=== PATIENT | male | born 1990 | race Caucasian/White ===

== ENCOUNTER 2025-10-14 16:07 | Outpatient (OUT) | payer OTHER, SELFPAY ==
--- OUTSIDE RECORDS SUMMARY | 2025-10-14 16:16 | XMS_ITS | Clinical Summary ---
Author Organization [facility] Address [address] [place] [address] Care Team Providers Care Real Estate Loan Officer Name Role Phone LailaDavid andrade Judy ELI Primary Care Provider [phone]- [phone] Allergies Active AllergyReactionsCriticalityNoted OipzDxpaywtcMwkwtqmdttdXucuUqb61/13/2019 Other Reaction(s): hives. redness Hydrocodone-AcetaminophenNausea Only10/05/2023Sulfa AntibioticsHives,RashLow 03/27/2017 Medications No known medications Active Problems ProblemNoted DateDiagnosed DateBipolar 1 /20/2023oncentration deficit 10/05/2023 Family History Medical HistoryRelationNameCommentsAlcohol abuseFatherDepressionFatherDepression EtliiwNwwcchsoAnizomWsqmcziFtqjdsUbsokrfbGssrMdmcrqEdllsgttKsjorli5QscsrpJadjh MotherAlive Social History Tobacco UseTypesPacks/DayYears UsedDateSmoking Tobacco: FormerCigarettes1.510 04/16/2012 - 04/16/2022mokeless Tobacco: NeverAlcohol UseStandard Drinks/Week CommentsYes0 (1 standard drink = 0.6 oz pure alcohol)Caffeine intake: coffee, 2 pots coffee dailyAUDIT-CAnswerDate RecordedQ1: How often do you have a drink containing alcohol?2-4 times a month10/04/2023Q2: How many drinks containing alcohol do you have on a typical day when you are drinking?5 or 6112/05/2022Q3: How often do you have six or more drinks on one occasion?Lwtnlf9310/04/2023Sex and Gender InformationValueDate RecordedSex Assigned at BirthNot on fileLegal Sex Male12/29/2022 7:34 PM EDTGender IdentityNot on fileSexual OrientationNot on file Last Filed Vital Signs Vital SignReadingTime TakenCommentsBlood Uknaerup838/8208 12:00 PM EDT Pulse--Temperature--Respiratory Rate--Oxygen Saturation--Inhaled Oxygen Concentration--Xdklvc84 kg (205 lb)10/05/2023 3:58 PM BLOEtbnrv541.7 cm (5' 8 ) 10/05/2023 3:58 PM ESTBody Mass Index31.17112/06/2022 3:58 PM EST Plan of Treatment Health MaintenanceDue DateLast DoneCommentsInfluenza Vaccine (#1)06/17/2025 Pneumococcal Vaccine: Pediatrics (0 to 5 Years) and At-Risk Patients (6 to 64 Years)Aged OutNo longer eligible based on patient's age to complete this topic Insurance Care Teams Team MemberRelationshipSpecialtyStart DateEnd Date David Rob DO [address] [place] [address] [facility] - [facility]02/22/23
--- OUTSIDE RECORDS SUMMARY | 2025-10-14 16:16 | XMS_ITS | Clinical Summary ---
Author [facility] Address [id number] [place] [address] Care Team Providers Care Sweeper Cleaner Industrial Name Role Phone LailaDavid andrade Judy ELI Primary Care Provider [phone]- [phone] Allergies Active AllergyReactionsCriticalityNoted KfdiBpmlotqnIaiovylmktdLphhCta82/13/2019 Sulfa (Sulfonamide Antibiotics)NlmmwSum92/11/2017Hydrocodone-AcetaminophenRash Low03/27/2017 Medications MedicationSigDispense QuantityRefillsLast FilledStart DateEnd DateStatus ibuprofen (MOTRIN) 800 mg tablet Take 1 tablet (800 mg total) by mouth 3 (three) times a day. 21 tablet 2Active Active Problems ProblemNoted DateDiagnosed DateRadial neuropathy, right08/29/2017Pain of right upper kbvwfcfix61/13/2017 Family History Medical HistoryRelationNameCommentsAlcohol abuseFatherDiabetesMotherKidney diseaseMotherRelationNameStatusCommentsFatherAliveMotherAlive Social History Tobacco UseTypesPacks/DayYears UsedDateSmoking Tobacco: Every DayCigarsSmokeless Tobacco: CurrentChew Tobacco Cessation:Ready to Q uit: Not Asked; Counseling Given: Not Answered Alcohol UseStandard Drinks/WeekCommentsNot Currently0 (1 standard drink = 0.6 oz pure alcohol)ChildcareAnswerDate UmbhedkqWeyrwogqcQiyzfcd83/12/2019Employment AnswerDate TnwunbtlDevrivvmriIcyzdhb90/12/2019Purpose - LifeAnswerDate Recorded Purpose and direction in tgeaGsuquoo38/11/2021ex and Gender InformationValue Date RecordedSex Assigned at BirthNot on fileLegal XevIdjv8805/22/2015 11:44 AM EDTGender IdentityNot on fileSexual OrientationNot on file Last Filed Vital Signs Vital SignReadingTime TakenCommentsBlood Jxtnevko604/8410 10:43 AM EDT Luitw620108/13/2022 10:43 AM SLNAmrtukcgqsi08.4 ??C (97.6 ??F)08/13/2022 8:37 AM EDTRespiratory Ndwn9809 10:43 AM EDTOxygen Mwwapqhlnm79%08/13/2022 10:43 AM EDTInhaled Oxygen Concentration--Rgpjci475.4 kg (250 lb)08/13/2022 8:37 AM VXSUjqpug726.3 cm (5' 9 )08/13/2022 8:37 AM EDTBody Mass Index36.9208/13/2022 8:37 AM EDT Plan of Treatment Health MaintenanceDue DateLast DoneCommentsDepression Ckbaivyog56/12/2002Tobacco Riyipunxx48/12/2002Adult BMI Jblfhgfip87/12/2008DTaP,Tdap and Td Vaccines (2 - Td or Tdap)/03/2015Influenza Lfocnwj7006/17/2025 Medical Devices ImplantedTypeAreaManufacturerDevice IdentifierShelf Expiration DateModel / Serial / LotDressing Bio Intgr 2x2in Bvn Clgn Gag Polysiloxane Mesh Strl Ea=1 Sheet=25 Cm2 - [facility] - [id number] Implanted:Qty: 25 on 08/13/2022 by [facility]vi Lam D[facility]: FootINTEGRA LIFESCIENCES [employer] LLC04/15/[id number] / NA / [id number] Insurance [address] [place] [address] Care Teams Team MemberRelationshipSpecialtyStart DateEnd Date David Rob DO [address] [place] [address] [facility] - [facility]03/27/17
--- NOTE | 2025-10-14 16:42 | XR_ITS ---
[place] [id number] Patient Name: OBDULIA GONZALES MRN: [id number] date: 1990 Sex: M Assigned Patient Location: [facility] Current Patient Location: Accession/Order Number: [id number] Exam Date: 10/14/2025 16:38 Report Date: 10/15/2025 01:02 At the request of: LINDA HORTA DO MS Procedure: XR elbow LT min 3V XR elbow LT min 3V 10/14/2025 4:44 PM SIGNS AND SYMPTOMS: ^Pain in left elbow, M25.522 PROTOCOL: 3 views of the left elbow COMPARISON: None FINDINGS: The joint spaces are preserved. There is no fracture or dislocation. No joint effusion or soft tissue swelling. XR/XR elbow LT min 3V IMPRESSION: No acute bony injury or significant degenerative change. Impression dictated by: Papa Calvin M.D. 10/15/2025 1:02 AM Dictation Location: [employer] Electronically authenticated by: [id number] Date: 10/15/2025 01:02
== END 2025-10-14 16:08 | disposition home or self-care (01) ==
LOC: RAD 16:13
PROVIDERS: PCP Student in an Organized Health Care Education/Training Program; Visit Provider Student in an Organized Health Care Education/Training Program
DX: M25.522 Pain in left elbow (principal)
CPT/HCPCS: 73080